=== PATIENT | male | born 1980 | race African-American/Black ===

== ENCOUNTER 2016-11-01 12:08 | Emergency (ER) | payer OTHER ==
[2016-11-01 12:16] VITALS: BMI 25.0
--- NOTE | 2016-11-01 12:33 | PDOC ---
[id number] 98 11/01/16 12:11 11/01/16 12:11 11/01/16 12:11 11/01/16 12:11 11/01/16 12:18 Medical Decision Making - Medical Decision Making 11/01/16 12:30 The patient was seen and evaluated in conjunction with MIAN Wise under my direct supervision, ancillary studies were reviewed. I independently interviewed and evaluated the patient and I agree with the plan as outlined by MIAN Wise. *DC/Admit/Observation/Transfer Diagnosis at time of Disposition: Wound pain - Discharge Dispostion Disposition: HOME Condition at time of disposition: Improved - Prescriptions Prescriptions: Cephalexin [Keflex] 500 mg PO Q6H #28 capsule Oxycodone HCl/Acetaminophen [Percocet 5-325 mg Tablet] 1 tab PO Q4H #12 tablet MDD 6 - Referrals Referrals: Edy Mcdonald MD [Primary Care Provider] - - Patient Instructions Additional Instructions: Please follow up with your surgeon on Thursday as already scheduled
[2016-11-01] MEDS ORDERED: OXYCODONE/APAP 5/325MG COMBO TABLET ONE (12:36)
[2016-11-01] MEDS ORDERED: OXYCODONE/APAP 5/325MG COMBO TABLET PO ONE (12:37)
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
[2016-11-01 13:16] VITALS: BP 140/70; PULSE 68; TEMP 98.3
== END 2016-11-01 13:16 | disposition home or self-care (01) ==
LOC: JER 12:08
DX: G89.18 Other acute postprocedural pain (principal); L76.22 Postprocedural hemorrhage of skin and subcutaneous tissue following other procedure; Y83.8 Other surgical procedures as the cause of abnormal reaction of the patient, or of later complication, without mention of misadventure at the time of the procedure
CPT/HCPCS: 99284-25